=== PATIENT | female | born 1975 | race Caucasian/White ===

== ENCOUNTER 2019-09-23 16:06 | Emergency (ER) | payer BC, OTHER ==
[~2019-09-23] VITALS: Ht 162.6 cm; Wt 77.0 kg
--- NOTE | 2019-09-23 17:25 | NUR ---
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
--- NOTE | 2019-09-23 17:40 | NUR ---
PATIENT BROUGHT BACK FROM TRIAGE WITH CHIEF COMPLAINT OF PAIN/REDDNESS/BLURRED VISIONS IN LEFT EYE AFTER GETTING HAIR DYE IN EYE ON FRIDAY.
[2019-09-23 17:43] VITALS: BP 134/54
[2019-09-23] MEDS ORDERED: FLUORESCEIN OPHTHALMIC 1 MG STRIP ONE (17:59)
[2019-09-23] MEDS ORDERED: PROPARACAINE OPHTH 0.5%, 15ML LEFTEYE ONE (17:59)
[2019-09-23] MEDS ORDERED: PROPARACAINE OPHTH 0.5%, 15ML ONE (17:59)
--- NOTE | 2019-09-23 18:21 | NUR ---
DUSTIN GILLIAM AT BEDSIDE FOR EVALUATION
[2019-09-23] MEDS ORDERED: DIPH,PERTUSS(ACELL),TET VAC/PF 0.5 ML IM-VACC ONE ×2 (18:24→18:30)
--- NOTE | 2019-09-23 18:47 | NUR ---
DISCHARGE INSTRUCTIONS REVIEWED
== END 2019-09-23 18:49 | disposition home or self-care (01) ==
LOC: ED 18:43
DX: H10.212 Acute toxic conjunctivitis, left eye (principal)
CPT/HCPCS: 90471; 90715